=== PATIENT | male | born 1955 | race Caucasian/White ===

== ENCOUNTER 2022-04-17 12:32 | Outpatient (CLI) | payer MEDICARE ==
[2022-04-17 12:45] LABS: #Basophils 0.1 thou/uL (0.0-0.2); #Eosinphils 0.4 thou/uL (0.0-0.7); #Lymphocytes 2.6 thou/uL (1.20-3.40); #Monocytes 0.8 thou/uL (0.11-0.59); #Neutrophils 5.5 thou/uL (1.40-6.50); %Basophils 1.2 % (0.0-1.0); %Eosinophils 3.9 % (0.0-10.0); %Lymphocytes 27.5 % (21.0-51.0); %Monocytes 8.6 % (0.0-10.0); %Neutrophils 58.9 % (42.0-75.0); Hemoglobin 14.8 g/dL (14.0-18.0); Mean Corpuscular HGB CONC 34.7 g/dL (32.0-36.0); Mean Corpuscular Volume 89.3 fL (78.0-98.0); Platelet Count 245 thou/uL (130-400); Red Blood Cell (RBC) Count 4.77 mill/uL (4.70-6.10); White Blood Cell (WBC) Count 9.3 thou/uL (4.8-10.8)
[2022-04-17 13:04] LABS: ALT (SGPT) 26 U/L (8-55); AST (SGOT) 23 U/L (5-34); Alkaline Phosphatase 64 U/L (40-110); Anion Gap 11 mmol/L (10-20); BUN (Urea Nitrogen) 21 mg/dL (8.4-25.7); Bilirubin, Total 0.5 mg/dL (0.2-1.2); Calc. Creatinine Clearance 0 mL/min (70-130); Carbon Dioxide 31 mmol/L (23-31); Cardiac Risk 3.8 (Less than 4.5); Chloride 104 mmol/L (98-107); Cholesterol 137 mg/dl (< 200 Desired); Estimated GFR 55; Globulin 2.9 g/dL (2.4-3.5); Glucose 81 mg/dL (80-115); HDL Cholesterol 36 mg/dL (>60 Neg Risk); LDL Cholesterol, Calculated 87 mg/dL; Potassium 3.6 mmol/L (3.5-5.1); Protein, Total 6.9 g/dL (5.8-8.1); Sodium 142 mmol/L (136-145); Triglycerides 71 mg/dL (Less than 150)
== END 2022-04-17 12:33 | disposition home or self-care (01) ==
LOC: HPCALD 12:32
PROVIDERS: ATTEND Family Medicine
DX: I10 Essential (primary) hypertension (principal)
CPT/HCPCS: 80053; 80061; 84443; 85025